=== PATIENT | female | born 1940 | race Caucasian/White ===

== ENCOUNTER 2016-06-18 10:29 | Emergency (ER) | payer OTHER ==
--- NOTE | 2016-06-18 10:44 | PROVIDER DOCUMENTATION ---
HPI-General Adult - General Chief Complaint: Abnormal Lab[s] Stated Complaint: HYPONATREMIA Time Seen by Provider: 06/18/16 10:39 Source: patient Allergies/Adverse Reactions: Patient Allergies Allergy/AdvReac Type Severity Reaction Status Date / Time No Known Allergies Allergy Verified 06/09/16 15:19 Home Medications: Home Medication List Medication Instructions Recorded Confirmed Last Taken Type Home Meds Unobtainable 06/10/16 06/10/16 Unknown History - History of Present Illness -Gen Adult Nature of Presenting Problems: pt is a 75 y/o f present to the [facility] with c/o abnormal labs. pt was sent from [facility] pt in no apparent distress. pt has a hx of dementia, COPD, HTN and is a former smoker. pt has a hoarse voice. DMW tech at bedside. Location of Pain/Injury: reports: none Pain Radiation: reports: no radiation Quality of Pain: reports: none Onset/Duration: reports: unsure Context/Activities at Onset: reports: none Modifying Factors: improves with: nothing Associated Symptoms: denies: fatigue, fever/chills, heartburn, seizure, shortness of breath Similar Symptoms Previously?: Yes Recently seen or treated by another doctor?: No Review of Systems - Adult - REVIEW OF SYSTEMS - ADULT Constitutional: reports: no symptoms reported Eyes: reports: no symptoms reported Ears, Nose, Mouth & Throat: reports: no symptoms reported Cardiovascular: reports: no symptoms reported Respiratory: reports: no symptoms reported Gastrointestinal: reports: no symptoms reported Genitourinary: reports: no symptoms reported Musculoskeletal: reports: no symptoms reported Integumentary: reports: no symptoms reported Neurological: reports: no symptoms reported Psychiatric: reports: no symptoms reported Endocrine: reports: no symptoms reported Hematologic/Lymphatic: reports: no symptoms reported Allergic/Immunologic: reports: no symptoms reported All Other Systems: Reviewed and Negative Past History - Adult - PAST MEDICAL HISTORY-ADULT Review of Records: reports: Nursing Assessment Review Major Childhood Illnesses: reports: denies history Cardiovascular: reports: HTN Respiratory: reports: COPD Musculoskeletal: reports: intervertebral disc disease Neurological: reports: Alzheimer's, dementia Psychiatric: reports: psychiatric problems Endocrine/Immune: reports: thyroid disorder, other (vit B 12 deficiency) - PRIOR SURGERIES/PROCEDURES Surgical/Procedure History: reports: hysterectomy, BTL - IMMUNIZATION STATUS Childhood Immunizations: See Nurse Assessment Flu Vaccine: See Nurse Assessment - FAMILY HISTORY Family History: reviewed, not pertinent - SOCIAL HISTORY Smoking: other (former smoker ) Substance Use: none/never Alcohol Use Frequency: never Living Situation: care facility Physical Exam-General - PHYSICAL EXAM-ADULT Initial Vital Signs Reviewed: Yes - CONSTITUTIONAL General Appearance: alert, no apparent distress - EYES Eyes: PERRL/EOMI, pink conjunctivae - HEAD, EARS, NOSE, MOUTH & THROAT HENMT: moist mucous membranes - NECK Neck: non-tender, full range of motion - RESPIRATORY Respiratory: chest non-tender, lungs clear, normal breath sounds, no pleuratic chest pain, no respiratory distress, no accessory muscle use - CARDIOVASCULAR Cardiovascular: normal peripheral pulses, regular rate, rhythm, no gallop, no JVD, no murmur - GASTROINTESTINAL (ABDOMEN) Abdominal Exam: normal bowel sounds, non tender, soft - MUSCULOSKELETAL Extremity: normal range of motion, non-tender, no pedal edema, no calf tenderness, normal capillary refill, pedal edema (mild swelling to lower extremity) - SKIN Integumentary: normal color, normal turgor, warm/dry - NEUROLOGIC Neurologic: grossly normal, no motor/sensory deficits - PSYCHIATRIC Psych/Mental Status: normal mood/affect, disoriented x 3 Progress - PLAN OF CARE/RESULTS Progress/Plan/Lab Results: Vital Signs - 24 hr 06/18/16 10:32 Temperature 97.3 F L Pulse Rate 62 Respiratory 18 Rate Blood Pressure 133/71 O2 Sat by Pulse 100 Oximetry MD spoke with DMW nurse about pt current mediations in relation to abnormal labs. hold back on pt medications. MD states euvolemic hyponatremia Departure - Departure Time of Disposition Order: 11:36 DIAGNOSIS: Hyponatremia Disposition: [facility] Certified Medical Emergency: Emergent Condition: Stable Referrals: None,PCP [Primary Care Provider] - Jacklyn Gil MD [STAFF PHYSICIAN] - Attestation - Scribe Verification/Attestation Scribe:: Alyson Washington Acting as Scribe for:: Deondre Barajas Scribe documention review:: This chart was documented by a scribe and accurately reflects the service the provider performed and the decisions made by the provider.
[2016-06-18 11:39] LABS: URINE CULTURE PL NEEDED? NO; URINE SOURCE CLEAN CATCH
[2016-06-18 11:46] LABS: BILIRUBIN URINE NEGATIVE (NEGATIVE); BLOOD URINE NEGATIVE (NEGATIVE); CLARITY CLEAR (CLEAR); COLOR YELLOW; GLUCOSE URINE NEGATIVE (NEGATIVE); LEUKOCYTES URINE TRACE (NEGATIVE); NITRITE URINE NEGATIVE (NEGATIVE); PH URINE 6.5; PROTEIN URINE NEGATIVE (NEGATIVE); SP GRAVITY URINE 1.015; UROBILINOGEN URINE NORMAL
[2016-06-18 11:47] LABS: URINE EPITHELIAL CELLS <10 /HPF (<10); URINE WBC <10 /HPF (<10)
[2016-06-18 11:51] VITALS: BP 109/54
== END 2016-06-18 12:15 ==
LOC: P.ED 10:29
DX: E87.1 Hypo-osmolality and hyponatremia (principal); R79.9 Abnormal finding of blood chemistry, unspecified; R60.0 Localized edema; R49.0 Dysphonia; J44.9 Chronic obstructive pulmonary disease, unspecified; I10 Essential (primary) hypertension; G30.9 Alzheimer's disease, unspecified; F02.80 Dementia in other diseases classified elsewhere, unspecified severity, without behavioral disturbance, psychotic disturbance, mood disturbance, and anxiety; Z87.891 Personal history of nicotine dependence
CPT/HCPCS: 81001; 99285

== ENCOUNTER 2016-11-19 10:09 | Inpatient (IN) ==
[2016-11-19] MEDS ORDERED: STERILE WATER INJ. ONE ×2 (12:23→18:36)
[2016-11-19] MEDS: GEODON IM PRN ×2 (12:28→18:52)
[2016-11-19] MEDS ORDERED: TYLENOL PO PRN (12:44)
[2016-11-19] MEDS ORDERED: ZOFRAN IV PRN (12:50)
--- NOTE | 2016-11-19 13:13 | EKG Report ---
Test Performed on : 11/19/2016 12:59:16 PM Test Reason : acute mental status change Blood Pressure : / mmHG Vent. Rate : 086 BPM Atrial Rate : 086 BPM P-R Int : 144 ms QRS Dur : 068 ms QT Int : 374 ms P-R-T Axes : 065 026 052 degrees QTc Int : 447 ms Normal sinus rhythm. Nonspecific ST abnormality Abnormal ECG When compared with ECG of 04-MAY-2016 18:56, premature atrial complexes. are no longer present Confirmed by Lon Yadav DO ([id number]) on 11/20/2016 12:36:04 PM
[2016-11-19 13:37] LABS: MANUAL DIFF NEEDED? NO
[2016-11-19 13:40] LABS: BASO% 0.4 % (0.0-0.8); EOS# 0.17 X1000 (0.0-0.7); EOS% 3.2 % (0.0-10.0); HEMATOCRIT 31.4 % (37.0-47.0); HEMOGLOBIN 10.2 g/dL (12.0-16.0); LYMPH# 0.86 X1000 (1.2-3.4); LYMPH% 16.3 % (20.5-51.1); MCH 29.3 PG (27-31); MCHC 32.5 g/dL (33-37); MCV 90.2 FL (81-99); MONO# 0.42 X1000 (0.11-0.59); MONO% 7.9 % (1.7-9.3); NEUT% 72.2 % (42.2-75.2); PLT 187 X1000 (130-400); RBC 3.48 XMIL (4.2-5.4)
[2016-11-19 14:07] LABS: ALBUMIN 3.8 g/dL (3.5-5.0); CALCIUM 9.6 mg/dL (8.8-10.2); POTASSIUM 4.3 mmol/L (3.5-5.1); TOTAL BILIRUBIN 0.26 mg/dL (0.20-1.00); TOTAL PROTEIN 6.5 g/dL (6.3-8.3)
--- NOTE | 2016-11-19 15:09 | Diag Imaging Result Doc PS360 ---
EXAM: HEAD W/O CONTRAST - 11/19/2016 HISTORY: ams TECHNIQUE: Dose reduction protocol COMPARISON: 06/09/2016 FINDINGS: There are some generalized atrophic changes similar to the previous exam. There are mild chronic microvascular ischemic changes. There is no indication of recent infarct, although acute infarcts may not be immediately visible. There are atherosclerotic calcifications noted at the base the brain. There is no evidence of hemorrhage mass effect or midline shift. IMPRESSION: Atrophic changes and mild chronic microvascular ischemic changes. No visible acute intracranial abnormality. No hemorrhage or mass effect. Electronically signed by Alexi Curiel 11/19/2016 3:07 PM
[2016-11-19] MEDS: DEPAKENE LIQUID PO SCH ×2 (15:23→17:59)
[2016-11-19] MEDS: D5 1/2 NS + KCL 10 MEQ 1,000 ML IV SCH (15:25)
[2016-11-19] MEDS: LOVENOX SUBQ SCH (15:33)
[2016-11-19] MEDS: ROCEPHIN 1 GM/NS 1 GM/50 ML IVPB IV SCH (15:41)
[2016-11-19 18:09] LABS: URINE MICRO REVIEW NEEDED? NO; URINE SOURCE CATH
[2016-11-19 18:22] LABS: BILIRUBIN URINE NEGATIVE (NEGATIVE); BLOOD URINE NEGATIVE (NEGATIVE); COLOR YELLOW; GLUCOSE URINE NEGATIVE (NEGATIVE); LEUKOCYTES URINE SMALL (NEGATIVE); NITRITE URINE NEGATIVE (NEGATIVE); PH URINE 6.5; PROTEIN URINE 30 mg/dL (NEGATIVE); SP GRAVITY URINE 1.024; TURBIDITY URINE CLEAR (CLEAR); UROBILINOGEN URINE NORMAL (NORMAL)
[2016-11-19 18:23] LABS: UR EPITHELIAL CELLS >10 /HPF (<10); URINE BACTERIA NEGATIVE /HPF; URINE CULTURE NEEDED? YES; URINE RBC <10 /HPF (<10)
--- NOTE | 2016-11-19 21:19 | HISTORY AND PHYSICAL ---
HISTORY OF PRESENT ILLNESS: Ms. Rankin, who is a 76-year-old, white female, a resident of [facility], who has hypertensive heart disease, ischemic heart disease, COPD, hypothyroidism, B12 deficiency, anemia, allergic rhinitis, history of pulmonary fibrosis and generalized muscle weakness. She has been hurting since yesterday and she had some change in mental status. She has mild dementia, however, she was communicating with people and taking a few steps since last night. She has been hallucinating, confused, and very agitated. She has not done this before. She was evaluated and has Alzheimer's type of dementia. MEDICATIONS: 1. Albuterol and Atrovent inhaler. 2. Aricept. 3. Namenda. 4. Olanzapine 5 mg at night. 5. Remeron 15 mg. 6. Depakote. 7. She also takes losartan 50 mg daily. 8. Vitamin B12 tablet daily. 9. Levothyroxine 50 mcg daily. Other details are noncontributory and cannot be obtained as the family is not here. ALLERGIES: She is not allergic to any medication. REVIEW OF SYSTEMS: Not available. PHYSICAL EXAMINATION: VITAL SIGNS AT THE LONGTERM: The vital signs at the [facility] revealed a pulse 100 per minute, blood pressure 100/60, temperature normal, respiratory rate was variable. HEENT: Head normocephalic. Pupils PERRLA. Fundus examination could not be done. NECK: Supple. JVP normal. HEENT: Examination unremarkable. There was no evidence of lymphadenopathy, thyroid enlargement, pedal edema, calf tenderness, anemia, cyanosis or clubbing. Pedal pulses well felt. BREASTS: Normal. CHEST: Normal to inspection. LUNGS: Clear to auscultation. HEART: Sounds normal. No murmur, gallop or rub noted. PMI in the normal position. ABDOMEN: Nondistended. Hernial orifices normal. No guarding, rigidity, free fluid, masses, or organomegaly. Bowel sounds normal. RECTAL: Deferred. CENTRAL NERVOUS SYSTEM: patient very agitated and confused and appears to be hallucinating. Movements of all extremities present. Deep tendon reflexes could not be done. There is no neck stiffness. Nervous system examination could not be done. CLINICAL IMPRESSION: 1. Acute mental status changes with agitation, hallucination. 2. History of dementia. 3. Chronic obstructive pulmonary disease. 4. Hypothyroidism. 5. Hypertensive heart disease. cc: Chapincito Camilo MD
[2016-11-20] MEDS ORDERED: STERILE WATER INJ. ONE ×3 (02:24→13:56)
[2016-11-20] MEDS: GEODON IM PRN ×4 (02:31→23:20)
[2016-11-20] MEDS: D5 1/2 NS + KCL 10 MEQ 1,000 ML IV SCH ×2 (03:18→13:59)
[2016-11-20 06:06] LABS: MANUAL DIFF NEEDED? NO
[2016-11-20 06:18] LABS: BASO% 0.5 % (0.0-0.8); EOS# 0.22 X1000 (0.0-0.7); HEMATOCRIT 28.7 % (37.0-47.0); HEMOGLOBIN 9.2 g/dL (12.0-16.0); LYMPH# 0.78 X1000 (1.2-3.4); LYMPH% 17.6 % (20.5-51.1); MCH 28.9 PG (27-31); MCHC 32.1 g/dL (33-37); MCV 90.3 FL (81-99); MONO# 0.33 X1000 (0.11-0.59); MONO% 7.4 % (1.7-9.3); NEUT% 69.5 % (42.2-75.2); PLT 166 X1000 (130-400); RBC 3.18 XMIL (4.2-5.4)
[2016-11-20 06:21] LABS: ALBUMIN 3.3 g/dL (3.5-5.0); CALCIUM 8.4 mg/dL (8.8-10.2); POTASSIUM 4.2 mmol/L (3.5-5.1); TOTAL BILIRUBIN 0.19 mg/dL (0.20-1.00); TOTAL PROTEIN 5.8 g/dL (6.3-8.3)
[2016-11-20] MEDS: SYNTHROID PO SCH (07:07)
--- NOTE | 2016-11-20 08:12 | Diag Imaging Result Doc PS360 ---
EXAM: CHEST-PORTABLE - 11/20/2016 HISTORY: routine TECHNIQUE: Portable chest 0555 COMPARISON: 06/09/2016 FINDINGS: Heart size is normal. There are possible mild COPD changes. There is stable biapical pleural thickening. There are no acute changes identified. IMPRESSION: Stable exam compared to prior. Electronically signed by Alexi Curiel 11/20/2016 8:10 AM
[2016-11-20] MEDS: DEPAKENE LIQUID PO SCH ×3 (09:31→17:22)
--- NOTE | 2016-11-20 12:57 | PROGRESS NOTE ---
DATE: 11/20/2016 SUBJECTIVE: The patient would not answer my questions. She has a history of dementia. Came in with altered mental status on top of that. Appears to have a UTI. OBJECTIVE: Vital signs: Blood pressure 153/87, respirations 18, pulse 85, temperature 97.6 degrees Fahrenheit, O2 saturation is 94%just on room air. HEENT: She is normocephalic. Lungs: Clear to auscultation and percussion without rhonchi, rales, or wheezes. Heart: Regular rate and rhythm without murmurs, gallops, or friction rubs. Abdomen: Soft. Active bowel sounds. No organomegaly or tenderness. Neurological: Patient is confused. Has baseline dementia and though she recognizes family members, does not carry on a conversation. Apparently became more agitated yesterday and confused, probably from her UTI. ASSESSMENT: 1. Urinary tract infection. 2. Altered mental status. 3. Underlying dementia. PLAN: Continue IV antibiotics. We will do another catheterized urine specimen tomorrow to see if it is improving. Awaiting culture report. cc: MD Chapincito Syed Jr, MD
[2016-11-20] MEDS: ROCEPHIN 1 GM/NS 1 GM/50 ML IVPB IV SCH (14:01)
[2016-11-20] MEDS: LOVENOX SUBQ SCH (17:22)
[2016-11-20] MEDS ORDERED: SODIUM CHLORIDE 0.9% 10 ML ONE (23:14)
[2016-11-21] MEDS: D5 1/2 NS + KCL 10 MEQ 1,000 ML IV SCH ×2 (02:23→13:17)
[2016-11-21] MEDS: SYNTHROID PO SCH (06:40)
[2016-11-21 08:00] LABS: URINE MICRO REVIEW NEEDED? NO; URINE SOURCE CATH
[2016-11-21 08:05] LABS: BILIRUBIN URINE NEGATIVE (NEGATIVE); BLOOD URINE NEGATIVE (NEGATIVE); COLOR YELLOW; GLUCOSE URINE NEGATIVE (NEGATIVE); LEUKOCYTES URINE TRACE (NEGATIVE); NITRITE URINE NEGATIVE (NEGATIVE); PH URINE 6.5; PROTEIN URINE NEGATIVE (NEGATIVE); SP GRAVITY URINE 1.013; TURBIDITY URINE CLEAR (CLEAR); UROBILINOGEN URINE NORMAL (NORMAL)
[2016-11-21 08:06] LABS: UR EPITHELIAL CELLS <10 /HPF (<10); URINE BACTERIA NEGATIVE /HPF; URINE CULTURE NEEDED? YES; URINE RBC <10 /HPF (<10); URINE WBC <10 /HPF (<10)
[2016-11-21] MEDS ORDERED: STERILE WATER INJ. ONE ×2 (08:43→16:31)
[2016-11-21] MEDS: GEODON IM PRN ×2 (08:49→16:30)
[2016-11-21] MEDS: DEPAKENE LIQUID PO SCH ×3 (08:49→16:28)
--- NOTE | 2016-11-21 12:22 | PROGRESS NOTE ---
DATE: 11/21/2016 SUBJECTIVE: The patient is very sleepy at this time. She has been given an injection apparently that made her a little sleepy. She was alert earlier her family member tells me. She still has been somewhat agitated and confused. She does have underlying dementia. Her urine culture came back negative but I am not sure that she got the urine culture drawn before she was given antibiotics. Her initial urinalysis showed 10-20 WBCs/HPF but is now looking clear, so I think she is responding to the antibiotics and hopefully will get better with this. OBJECTIVE: Vital Signs: Blood pressure 169/70, respirations 16, pulse 76, temperature 98 degrees. HEENT: She is normocephalic. EOMs intact. PERRLA. Throat clear. Lungs: Clear to auscultation and percussion without rhonchi, rales, or wheezes. Heart: Regular rate and rhythm without murmurs, gallops, or friction rubs. Abdomen: Soft. Active bowel sounds. No organomegaly or tenderness. Neurologic: The patient is not very responsive at this time as she is trying to sleep. ASSESSMENT: 1. Altered mental status. 2. Probable urinary tract infection. 3. Hypertension. PLAN: Continue treatment and continue antibiotics. cc: MD Chapincito Syed Jr, MD
[2016-11-21] MEDS: LOVENOX SUBQ SCH (13:18)
[2016-11-21] MEDS: ROCEPHIN 1 GM/NS 1 GM/50 ML IVPB IV SCH (13:18)
[2016-11-22] MEDS: D5 1/2 NS + KCL 10 MEQ 1,000 ML IV SCH ×2 (01:39→12:42)
[2016-11-22] MEDS: SYNTHROID PO SCH (06:43)
--- NOTE | 2016-11-22 09:29 | PROGRESS NOTE ---
DATE: 11/22/2016 Ms. Rankin is somewhat drowsy. Her lungs are clearing up. Her heart sounds are normal. She is still shaky and very confused, agitated. I suggested to the family about getting a psychiatric evaluation and transferring her to a psychiatric hospital which they are refusing. She is on Geodon p.r.n. and ceftriaxone as well as Depakote. Overall condition is unchanged. cc: Chapincito Camilo MD
[2016-11-22] MEDS: DEPAKENE LIQUID PO SCH ×3 (09:39→18:30)
[2016-11-22] MEDS: DUONEB (A & A) INH PRN (11:15)
[2016-11-22] MEDS ORDERED: STERILE WATER INJ. ONE ×2 (12:35→21:03)
[2016-11-22] MEDS: GEODON IM PRN ×2 (12:42→21:10)
[2016-11-22] MEDS: ROCEPHIN 1 GM/NS 1 GM/50 ML IVPB IV SCH (15:41)
[2016-11-22] MEDS: LOVENOX SUBQ SCH (15:41)
[2016-11-22] MEDS: HALDOL PO SCH (20:09)
[2016-11-23] MEDS: D5 1/2 NS + KCL 10 MEQ 1,000 ML IV SCH ×3 (01:15→23:54)
[2016-11-23] MEDS: SYNTHROID PO SCH (06:26)
[2016-11-23] MEDS: DEPAKENE LIQUID PO SCH ×3 (08:42→17:29)
[2016-11-23] MEDS: HALDOL PO SCH ×3 (08:43→23:54)
--- NOTE | 2016-11-23 08:53 | PROGRESS NOTE ---
DATE: 11/23/2016 SUBJECTIVE: Ms. Rankin is still very drowsy. Her lungs are clear. She has severe dementia with behavioral changes and she is a group home patient. Family is refusing to go to psych hospital, however they want a psych opinion. Will ask Dr. Adrien Levine or his staff to see her today if possible. I will have her cut down on the Geodon from 20 to 10 mg and she is on Haldol now. cc: Chapincito Camilo MD
[2016-11-23] MEDS: LOVENOX SUBQ SCH (13:24)
[2016-11-23] MEDS: ROCEPHIN 1 GM/NS 1 GM/50 ML IVPB IV SCH (13:24)
[2016-11-23] MEDS: STERILE WATER INJ. INJ PRN (19:58)
[2016-11-23] MEDS: GEODON IM PRN (19:58)
[2016-11-23] MEDS: DUONEB (A & A) INH PRN (22:05)
[2016-11-24] MEDS: SYNTHROID PO SCH (06:18)
[2016-11-24] MEDS: HALDOL PO SCH ×2 (08:33→21:36)
[2016-11-24] MEDS: DEPAKENE LIQUID PO SCH (08:33)
--- NOTE | 2016-11-24 10:03 | PROGRESS NOTE ---
DATE: 11/24/2016 Ms. Rankin is still drowsy. We are going to stop the Depakote on her. She is getting Haldol and she got some Geodon down which made her very drowsy. She is . She does not swallow properly and does not he eat right. She cannot eat because she is drowsy. When she comes up from drowsiness we will start her on a soft diet. Her BUN and creatinine are coming down significantly. Will repeat the Chem 7 again in the morning. Cultures have been negative. cc: Chapincito Camilo MD
[2016-11-24] MEDS: D5 1/2 NS + KCL 10 MEQ 1,000 ML IV SCH (14:47)
[2016-11-24] MEDS: LOVENOX SUBQ SCH (14:47)
[2016-11-24] MEDS: ROCEPHIN 1 GM/NS 1 GM/50 ML IVPB IV SCH (14:47)
[2016-11-24] MEDS: GEODON IM PRN (19:50)
[2016-11-24] MEDS: STERILE WATER INJ. INJ PRN (19:50)
[2016-11-25] MEDS: D5 1/2 NS + KCL 10 MEQ 1,000 ML IV SCH ×3 (02:33→23:09)
[2016-11-25] MEDS: SYNTHROID PO SCH (06:10)
[2016-11-25 07:43] LABS: AGAP 10; BUN 8 mg/dL (8-22); CALCIUM 8.5 mg/dL (8.8-10.2); CHLORIDE 103 mmol/L (98-107); COSMO 278; POTASSIUM 4.1 mmol/L (3.5-5.1); SODIUM 140 mmol/L (136-145); TCO2 27 mmol/L (25-35)
[2016-11-25] MEDS: HALDOL PO SCH ×2 (09:15→23:09)
--- NOTE | 2016-11-25 09:49 | PROGRESS NOTE ---
DATE: 11/25/2016 SUBJECTIVE: Ms. Rankin is still somewhat agitated. She has significant dementia and has been shaking. We have taken her off the Depakote. We will discontinue the Geodon today. BUN and creatinine are normal. Electrolytes are stable. We are trying to feed her through the The family has been informed about tube feeding which they will then order. We may discharge her tomorrow. cc: Chapincito Camilo MD
[2016-11-25] MEDS: ROCEPHIN 1 GM/NS 1 GM/50 ML IVPB IV SCH (14:43)
[2016-11-25] MEDS: LOVENOX SUBQ SCH (14:43)
[2016-11-26] MEDS: SYNTHROID PO SCH (06:28)
[2016-11-26 07:59] VITALS: BP 148/82
--- NOTE | 2016-11-26 09:27 | PROGRESS NOTE ---
DATE: 11/26/2016 SUBJECTIVE: Ms. Rankin is in about the same general condition. She is slightly more alert. However, she is still drowsy. ASSESSMENT AND PLAN: We will continued the Haldol at the present time. Cut it down to 1 mg twice a day and discharge her to [facility]. cc: Chapincito Camilo MD
--- NOTE | 2016-11-26 10:26 | DISCHARGE SUMMARY ---
ADMISSION DATE: 11/19/2016 DISCHARGE DATE: 11/26/2016 HISTORY: Ms. Rankin, who is a 76-year-old white female, was admitted with acute mental status change. She did have some behavioral changes. A CT scan of the brain revealed cortical atrophy. No process noted. EKG revealed normal sinus rhythm. Nonspecific ST abnormalities were noted. LABORATORY DATA: Lab data initially revealed hemoglobin was 9.2, hematocrit was 28.7, white count 4.44. Initial electrolytes were normal. BUN was 44, creatinine was 1.5, and it came down to BUN of 8 and creatinine of 0.9. B12 level was 1663. Urinalysis was negative. COURSE IN THE HOSPITAL: She was given IV fluids. IV Geodon was given. IV antibiotics were started and continued thinking that she had some UTI or possible aspiration-related problems. Chest x-ray was stable exam with changes of COPD. She probably had some bronchitis as she had initially some wheezing. We continue the antibiotics. She became very drowsy. Restraints were put on her. She was trying to pull on to things, especially the IV lines. She has improved some, but she is still very drowsy. Family does not want any tube feeding at the current time. We will discharge her back to [facility]. FINAL DIAGNOSES: 1. Dementia with behavioral changes. 2. Mild bronchitis. 3. Hypothyroidism. 4. Chronic obstructive pulmonary disease. She will be seen by me at the [facility]. cc: Chapincito Camilo MD
[2016-11-26] MEDS: D5 1/2 NS + KCL 10 MEQ 1,000 ML IV SCH (10:48)
[2016-11-26] MEDS ORDERED: HALDOL PO SCH (21:00)
== END 2016-11-26 11:12 ==
LOC: DIRADM 10:09 → 3N 10:33
PROVIDERS: ADMIT Internal Medicine; ATTEND Internal Medicine

== ENCOUNTER 2016-12-28 03:23 | Inpatient (IN) ==
[2016-12-28 04:12] LABS: ALLEN TEST YES; BE -1.2 mmoll (-3.0-3.0); BLOOD TYPE ARTERIAL; DRAW SITE R BRACHIAL; METHB 0.9 % (0.0-1.5); O2(CT) 13.4 mL/dL (15.0-23.0); PCO2(98.6) 31 mmHg (35-45); PO2(98.6) 50 mmHg (60-100); SAMPLE BLOOD; pH(98.6) 7.46 (7.35-7.45)
[2016-12-28 04:13] LABS: MODALITY CANNULA
--- NOTE | 2016-12-28 04:26 | PROVIDER DOCUMENTATION ---
HPI-General Adult - General Chief Complaint: Shortness of Breath Stated Complaint: FEVER/RESP. DISTRESS Time Seen by Provider: 12/28/16 04:15 Source: family Allergies/Adverse Reactions: Patient Allergies Allergy/AdvReac Type Severity Reaction Status Date / Time No Known Allergies Allergy Verified 12/28/16 04:38 Home Medications: Home Medication List Medication Instructions Recorded Confirmed Last Taken Type ATORVAstatin [Lipitor] 40 mg PO QHS 30 Days 06/21/16 12/28/16 12/27/16 Rx Albuterol 2.5MG/Ipratrop 0.5MG 3 ml INH RTBID 30 Days 06/21/16 12/28/16 Rx [Duoneb (A & A)] Cyanocobalamin [Vitamin B-12] 1,000 microgm PO DAILY 30 Days 06/21/16 12/28/16 12/27/16 Rx Donepezil [Aricept] 10 mg PO HS 30 Days 06/21/16 12/28/16 12/27/16 Rx Fluticasone/Salmet 250/50 INH 1 puff INH RTBID 30 Days 06/21/16 12/28/16 Rx [Advair 250/50 Diskus] Losartan [Cozaar] 50 mg PO DAILY 30 Days 06/21/16 12/28/16 12/27/16 Rx Memantine [Namenda] 10 mg PO BID 30 Days 06/21/16 12/28/16 12/27/16 Rx Acetaminophen [Tylenol] 650 mg PO Q6H PRN PRN #0 tablet 11/26/16 12/28/16 Rx Albuterol 2.5MG/Ipratrop 0.5MG 3 ml INH Q4-6H PRN PRN #0 neb 11/26/16 12/28/16 12/27/16 Rx [Duoneb (A & A)] Haloperidol [Haldol] 0.5 mg PO BID tablet 11/26/16 12/28/16 12/27/16 Rx Levothyroxine [Synthroid] 50 microgm PO DAILY@0700 tablet 11/26/16 12/28/1603/04 Rx - History of Present Illness -Gen Adult Nature of Presenting Problems: 76 YEAR OLD WITH A COMPLAINT OF DYSPNEA. HAS A HISTORY OF LATE STAGE ALZHEIMERS. COMPLAINS OF FEVER AND TACHYCARDIA AT THE [facility]. NO COMPLAINT OF CHEST PAIN, ABDOMINAL PAIN, NAUSEA, VOMITING OR DIARRHEA. Location of Pain/Injury: reports: none Pain Radiation: reports: no radiation Quality of Pain: reports: none Onset/Duration: reports: 24 hours ago Timing: reports: still present Context/Activities at Onset: reports: none Modifying Factors: improves with: nothing Associated Symptoms: reports: denies symptoms Similar Symptoms Previously?: No Recently seen or treated by another doctor?: No - Diabetes Related Context Context: denies: low blood sugar - Sickle Cell Pain Related Context Sickle Cell Pain Location: reports: none Review of Systems - Adult - REVIEW OF SYSTEMS - ADULT Constitutional: reports: see HPI Eyes: reports: no symptoms reported Ears, Nose, Mouth & Throat: reports: no symptoms reported Cardiovascular: reports: palpitations Respiratory: reports: no symptoms reported Genitourinary: reports: no symptoms reported Musculoskeletal: reports: no symptoms reported Integumentary: reports: no symptoms reported Neurological: reports: no symptoms reported Psychiatric: reports: no symptoms reported Endocrine: reports: no symptoms reported Hematologic/Lymphatic: reports: no symptoms reported Allergic/Immunologic: reports: no symptoms reported All Other Systems: Reviewed and Negative Past History - Adult - PAST MEDICAL HISTORY-ADULT Review of Records: reports: Old Records Reviewed, Nursing Assessment Review, Medications Reviewed, Social history reviewed & non-contributory. Major Childhood Illnesses: reports: denies history Cardiovascular: reports: HTN Respiratory: reports: COPD Musculoskeletal: reports: intervertebral disc disease Neurological: reports: Alzheimer's, dementia Endocrine/Immune: reports: thyroid disorder, other (vit B 12 deficiency) - PRIOR SURGERIES/PROCEDURES Surgical/Procedure History: reports: hysterectomy, BTL - IMMUNIZATION STATUS Childhood Immunizations: See Nurse Assessment Flu Vaccine: See Nurse Assessment - FAMILY HISTORY Family History: reviewed, not pertinent Physical Exam-General - CONSTITUTIONAL General Appearance: no apparent distress - EYES Eyes: PERRL/EOMI, pink conjunctivae - HEAD, EARS, NOSE, MOUTH & THROAT HENMT: normocephalic/atraumatic, moist mucous membranes - NECK Neck: non-tender, full range of motion - RESPIRATORY Respiratory: chest non-tender, lungs clear, normal breath sounds - CARDIOVASCULAR Cardiovascular: normal peripheral pulses, regular rate, rhythm - GASTROINTESTINAL (ABDOMEN) Abdominal Exam: normal bowel sounds, non tender, soft - LYMPHATIC Lymphatic: no adenopathy, axilla node tender - MUSCULOSKELETAL Back Exam: normal inspection, no CVA tenderness, no vertebral tenderness Extremity: normal range of motion, non-tender - SKIN Integumentary: warm/dry - NEUROLOGIC Neurologic: lead driver II-XII nml as tested - PSYCHIATRIC Psych/Mental Status: disoriented x 3 Progress - PLAN OF CARE/RESULTS Progress/Plan/Lab Results: Laboratory Results - last 24 hr 12/28/16 04:00 Specimen Type ARTERIAL Sample Site R BRACHIAL pH 7.46 H pCO2 31 L pO2 50 L HCO3 23.8 Base Excess -1.2 Oxyhemoglobin 86.9 L* ABG O2 Sat (Calculated) 13.4 L ABG O2 Saturation 90.0 L ABG Carboxyhemoglobin 2.50 ABG Methemoglobin 0.9 Linden Test YES A-a O2 Difference 168.0 Total Hemoglobin 11.0 L Lactate 1.80 Liter Flow 4.0 Blood Gas Modality CANNULA FiO2 % 36.0 Orders Category Date Time Status Cardiac Monitoring DIRECTED Care 12/28/16 03:59 Active IV Insertion ORDERED Care 12/28/16 03:59 Active CHEST-1 VIEW [RAD] Stat Exams 12/28/16 03:59 Ordered ABG [RESP] Routine Lab 12/28/16 04:00 Completed BLOOD CULTURE [BLDCUL] Stat Lab 12/28/16 03:59 Uncollected CBC WITH DIFF [HEME] Stat Lab 12/28/16 03:59 Uncollected CK PROFILE [SP CHEM] Stat Lab 12/28/16 03:59 Uncollected COMPREHENSIVE METABOLIC PANEL [CHEM] Stat Lab 12/28/16 03:59 Uncollected LACTATE, PLASMA [CHEM] Stat Lab 12/28/16 03:59 Uncollected MAGNESIUM [CHEM] Stat Lab 12/28/16 04:00 Uncollected PROTIME WITH INR [COAG] Stat Lab 12/28/16 03:59 Uncollected PTT [COAG] Stat Lab 12/28/16 03:59 Uncollected TROPONIN T Stat Lab 12/28/16 03:59 Uncollected URINALYSIS W/POSS RFLX CULT-1 [URINALYSIS] Routine Lab 12/28/16 03:59 Uncollected Oxygen Device Stat Oth 12/28/16 03:59 Active Result Diagrams: 12/28/16 03:50 09/12/17 03:50 Departure - Departure Date of Disposition Decision: 12/28/16 Time of Disposition Decision: 05:03 DIAGNOSIS: UTI (urinary tract infection), Volume depletion Disposition: ADMITTED INPATIENT Certified Medical Emergency: Emergent Condition: Stable - Critical Care Note This patient required my direct & personal management of CC.: No Attestation - Physician/ FANI Attestation The physician spent face to face time with patient:: Yes Advanced Practice Provider documentation review:: Supervising physician onsite and consulted in the evaluation and care of this patient. The physician did have a face to face encounter with the patient.
[2016-12-28 04:43] LABS: URINE MICRO REVIEW NEEDED? NO; URINE SOURCE CATH
[2016-12-28 04:43] LABS: MANUAL DIFF NEEDED? NO
[2016-12-28 04:46] LABS: BASO% 0.2 % (0.0-0.8); EOS# 0.07 X1000 (0.0-0.7); EOS% 0.8 % (0.0-10.0); HEMATOCRIT 39.7 % (37.0-47.0); HEMOGLOBIN 12.3 g/dL (12.0-16.0); IMM GRAN# 0.04 X1000 (0.0-0.04); IMM GRAN% 0.5 % (0.0-0.5); LYMPH% 19.2 % (20.5-51.1); MCH 28.1 PG (27-31); MCV 90.6 FL (81-99); MONO# 0.36 X1000 (0.11-0.59); MONO% 4.3 % (1.7-9.3); MPV 13.3 FL (7.4-10.4); PLT 177 X1000 (130-400); RBC 4.38 XMIL (4.2-5.4)
[2016-12-28 04:47] LABS: BILIRUBIN URINE NEGATIVE (NEGATIVE); BLOOD URINE TRACE (NEGATIVE); COLOR YELLOW; GLUCOSE URINE NEGATIVE (NEGATIVE); LEUKOCYTES URINE SMALL (NEGATIVE); NITRITE URINE NEGATIVE (NEGATIVE); PH URINE 5.5; PROTEIN URINE 30 mg/dL (NEGATIVE); SP GRAVITY URINE 1.028; TURBIDITY URINE CLEAR (CLEAR); UROBILINOGEN URINE NORMAL (NORMAL)
[2016-12-28 04:48] LABS: UR EPITHELIAL CELLS >10 /HPF (<10); URINE BACTERIA 1+ /HPF; URINE CULTURE NEEDED? YES; URINE RBC <10 /HPF (<10)
[2016-12-28 04:55] LABS: INR 0.97; PROTIME 10.2 Seconds (9.2-11.7); PTT 25.6 Seconds (22.0-36.0)
[2016-12-28 04:59] LABS: ALBUMIN 3.5 g/dL (3.5-5.0); CALCIUM 9.8 mg/dL (8.8-10.2); MAGNESIUM 2.7 mg/dL (1.5-2.7); POTASSIUM 4.5 mmol/L (3.5-5.1); TOTAL BILIRUBIN 0.49 mg/dL (0.20-1.00); TOTAL PROTEIN 7.9 g/dL (6.3-8.3)
[2016-12-28] MEDS ORDERED: ROCEPHIN 1 GM in NS 50 ML IV ONE (05:01)
[2016-12-28] MEDS ORDERED: NS 1,000 ML IV ONE (05:01)
[2016-12-28 05:22] LABS: CK INDEX 1.3 (0.0-2.5); CK-MB 6.45 ng/mL (0.0-5.0)
--- NOTE | 2016-12-28 05:30 | EKG Report ---
Test Performed on : 12/28/2016 04:25:24 AM Test Reason : No Order in [facility] Blood Pressure : / mmHG Vent. Rate : 125 BPM Atrial Rate : 125 BPM P-R Int : 122 ms QRS Dur : 062 ms QT Int : 334 ms P-R-T Axes : 072 031 042 degrees QTc Int : 482 ms Sinus tachycardia. with premature supraventricular complexes. and with occasional premature ventricu lar complexes. Nonspecific ST and T wave abnormality Abnormal ECG When compared with ECG of 28-DEC-2016 04:05, (Unconfirmed) QRS axis shifted left Nonspecific T wave abnormality now evident in Anterior leads T wave inversion less evident in Lateral leads Unconfirmed Result
[2016-12-28 07:31] LABS: ALBUMIN 3.7 g/dL (3.5-5.0); CALCIUM 9.5 mg/dL (8.8-10.2); POTASSIUM 4.6 mmol/L (3.5-5.1); TOTAL BILIRUBIN 0.46 mg/dL (0.20-1.00); TOTAL PROTEIN 7.2 g/dL (6.3-8.3)
--- NOTE | 2016-12-28 07:34 | Diag Imaging Result Doc PS360 ---
EXAM: CHEST-1 VIEW HISTORY: SOB TECHNIQUE: AP portable at 0415 COMMENT: There is pleural thickening in the apices particularly on the right. The lungs are better expanded than on 11/20/2016. Otherwise considering differences in technique there is been no significant change. IMPRESSION: Granulomatous changes. No evidence of acute disease. Electronically signed by Jeff Akbar 12/28/2016 7:32 AM
[2016-12-28] MEDS ORDERED: TYLENOL PR ONE (08:07)
[2016-12-28] MEDS ORDERED: D5 1/2 NS 1,000 ML IV ONE (08:07)
[2016-12-28] MEDS: ZOSYN 3.375 GM in NS 50 ML IV SCH ×3 (09:00→21:00)
[2016-12-28] MEDS ORDERED: TYLENOL PR PRN (17:31)
--- NOTE | 2016-12-28 18:41 | HISTORY AND PHYSICAL ---
HISTORY OF PRESENT ILLNESS: Ms. Rankin is a 76-year-old white female, a resident of [facility], known case of severe dementia who was admitted because of intermittent high fever. Ms. Rankin is also a known case of COPD and she was admitted here about a month ago and thereafter sent to group home and she has not done well. She has not been eating at all at the group home. PAST SURGICAL HISTORY: Hysterectomy and cholecystectomy. History of recurrent UTIs in the past. Ms. Rankin was running a very high temperature this morning. REVIEW OF SYSTEMS: Unavailable. SOCIAL HISTORY: She is a nonsmoker. Does not drink. MEDICATIONS: She hardly could take anything by mouth. Her oral medications at the group home included atorvastatin 40 mg, 500 mcg of vitamin B12 tablet, donepezil and Advair Diskus. PHYSICAL EXAMINATION: VITAL SIGNS: Reveal temperature 103 degrees in the emergency room. Pulse 117. Respiratory rate 30 per minute, blood pressure 125/47. HEENT: Head normocephalic. Pupils PERRLA. Fundus examination could not be done. Neck supple. JVP normal. ENT examination unremarkable. There was no evidence of lymphadenopathy, thyroid enlargement, pedal edema, calf tenderness, anemia, cyanosis or clubbing. Pedal pulses well felt. BREASTS: Normal. CHEST: Normal inspection. LUNGS: Reveal occasional basal rales. PMI in the normal position. HEART: Sounds normal. No murmur, gallop or rub noted. ABDOMEN: Nondistended. Hernial orifices normal. No guarding, rigidity, free fluid, masses, or organomegaly. Bowel sounds normal. RECTAL: Deferred. [employer]/HIGHER FUNCTIONS: Patient is obtunded and tremulous. Cranial nerves grossly normal. Motor and sensory system examination reveals generalized hypotonia and some tremors in both upper extremities. The deep tendon reflexes are sluggish. Plantars downgoing. Skull and spine examination normal for age. No cerebellar signs or signs of meningeal irritation. LOCOMOTOR: Unremarkable. SKIN: Revealed presence of dehydration. IMPRESSION: Dehydration. High fever. Possibly acute urinary tract infection. Patient has severe dementia, chronic obstructive pulmonary disease. We will get a blood cultures and start the appropriate antibiotics. Overall prognosis is poor. She is Do Not Resuscitate. cc: Chapincito Camilo MD
[2016-12-28] MEDS ORDERED: NS 50 ML ONE (20:13)
[2016-12-29] MEDS: ZOSYN 3.375 GM in NS 50 ML IV SCH ×4 (02:34→21:28)
[2016-12-29] MEDS ORDERED: VANCOMYCIN IV PER PHARMACY MISC SCH (08:45)
--- NOTE | 2016-12-29 09:47 | PROGRESS NOTE ---
DATE: 12/29/2016 SUBJECTIVE: Ms. Rankin is still confused, disoriented. Oral intake is slowly improving. Urine culture grew gram positive cocci. We have added vancomycin on top of Zosyn. We will continue the current management. She is on pureed diet. cc: Chapincito Camilo MD
[2016-12-29] MEDS: VANCOMYCIN 1 GM/NS 1 GM/250 ML IVPB IV SCH (11:11)
[2016-12-29] MEDS ORDERED: LOPRESSOR PO ONE (16:26)
--- NOTE | 2016-12-29 16:55 | EKG Report ---
Test Performed on : 12/29/2016 4:31:41 PM Test Reason : atrial tachycardia report from telemetry Blood Pressure : / mmHG Vent. Rate : 094 BPM Atrial Rate : 094 BPM P-R Int : 122 ms QRS Dur : 068 ms QT Int : 364 ms P-R-T Axes : 078 033 041 degrees QTc Int : 455 ms Sinus rhythm. with premature supraventricular complexes. Otherwise normal ECG When compared with ECG of 28-DEC-2016 04:25, (Unconfirmed) premature ventricular complexes. are no longer present Confirmed by Tomas Butcher MD ([id number]) on 01/01/2017 4:10:41 PM
[2016-12-29] MEDS: TYLENOL PR PRN (18:48)
[2016-12-29] MEDS: LOPRESSOR PO SCH (21:30)
[2016-12-30] MEDS: ZOSYN 3.375 GM in NS 50 ML IV SCH ×4 (02:06→21:04)
--- NOTE | 2016-12-30 06:11 | EKG Report ---
Test Performed on : 12/30/2016 05:28:29 AM Test Reason : atrial tachycardia report from telemetry Blood Pressure : / mmHG Vent. Rate : 096 BPM Atrial Rate : 049 BPM P-R Int : 000 ms QRS Dur : 064 ms QT Int : 298 ms P-R-T Axes : 000 053 083 degrees QTc Int : 376 ms Normal sinus rhythm. with premature supraventricular complexes. Nonspecific ST and T wave abnormality Abnormal ECG When compared with ECG of 29-DEC-2016 16:31, (Unconfirmed) Nonspecific T wave abnormality, worse in Anterior leads QT has shortened Confirmed by Tomas Butcher MD ([id number]) on 01/02/2017 12:21:22 PM
--- NOTE | 2016-12-30 09:41 | PROGRESS NOTE ---
DATE: 12/30/2016 Ms. Rankin is on the Zosyn as well as IV vancomycin. Her vital signs are stable. Lungs are clear. She is tolerating the pureed diet well. She is afebrile, running about 98.9 degree temperature. The urine culture grew gram positive cocci. Blood cultures so far have been negative. We do not have the identification yet. We will continue the current management. cc: Chapincito Camilo MD
[2016-12-30] MEDS: LOPRESSOR PO SCH ×2 (10:46→21:05)
[2016-12-31] MEDS: ZOSYN 3.375 GM in NS 50 ML IV SCH ×4 (01:19→21:41)
[2016-12-31] MEDS: LOPRESSOR PO SCH ×2 (09:12→21:42)
[2016-12-31] MEDS ORDERED: CALMOSEPTINE OINTMENT TOP PRN (15:03)
--- NOTE | 2016-12-31 15:34 | PROGRESS NOTE ---
DATE: 12/31/2016 SUBJECTIVE: Ms. Rankin is doing fairly well. Her vital signs are stable. She is running a low- grade temperature at times. Her urine culture grew E. faecalis sensitive to vancomycin as well as penicillin. She is on IV Zosyn as well as vancomycin. Her blood culture grew OM negative Staphylococcus. She is on vancomycin. We are going to continue the current management. She is on soft diet. She is on pureed diet. Overall condition is unchanged. cc: Chaipncito Camilo MD
[2017-01-01] MEDS ORDERED: NS 50 ML ONE (03:54)
[2017-01-01] MEDS: ZOSYN 3.375 GM in NS 50 ML IV SCH ×4 (03:57→21:48)
[2017-01-01] MEDS: LOPRESSOR PO SCH ×2 (09:35→21:48)
[2017-01-01] MEDS ORDERED: D5 1/2 NS 500 ML IV SCH (10:21)
[2017-01-01] MEDS: VANCOMYCIN 1 GM/NS 1 GM/250 ML IVPB IV SCH (11:43)
[2017-01-01] MEDS: D5 1/2 NS 1,000 ML IV SCH ×2 (11:43→21:48)
--- NOTE | 2017-01-01 13:56 | PROGRESS NOTE ---
DATE: 01/01/2017 SUBJECTIVE: Covering for Dr. Camilo, level 3 documentation. A 76-year-old white female was admitted to the hospital on 12/28/2016 for altered mental status, dehydration, urinary tract infection, with underlying severe dementia, COPD, from [facility]. REVIEW OF SYSTEMS: Not able to obtain; patient is sleeping. Family was there at bedside. PAST MEDICAL HISTORY: Reviewed. PAST SURGICAL HISTORY: Reviewed. MEDICINES: Reviewed. EXAMINATION: Vital Signs: Fever 100.4, tachycardic, blood pressure is stable at 108 x 62, 87 pounds. Input and output are negative 950. HEENT Exam: Sleeping. Unable to open the eyes. Neck: Supple. Chest: Clear to auscultation. Heart: Sounds are regular. Abdomen: Belly is soft, scaphoid. Lower midline abdominal scar present. The patient has been in diapers. Extremities: No peripheral edema, cyanosis. Neurological: No obvious neurological deficits. INVESTIGATIONS: Blood cultures are coagulase-negative Staph. Urine cultures grew group-B Enterococcus faecalis sensitive to penicillin. LABS: Initial labs reported on 12/28: CBC is normal. ABG was hypoxic. SMA 7 on 12/28: Sodium 154, potassium 4.6, BUN 55, creatinine 1.9 increasing to 2.1. LFTs were normal. Chest x-ray shows COPD changes. ASSESSMENT AND PLAN: 1. Severe dementia, stable. 2. Urinary tract infection due to group B Enterococcus sensitive to penicillin, currently on intravenous Zosyn and vancomycin. 3. Coagulase-negative Staphylococcus for blood cultures, most likely a contaminant. 4. Hypernatremic dehydration azotemia. Stop the intravenous fluids. We will start D 5 half- normal saline 50 an hour. 5. Chronic obstructive pulmonary disease, stable. 6. Reconcile home medicines, which include cyanocobalamin, Aricept. 7. Hypothyroid on Synthroid and Namenda. 8. Living Will/do not resuscitate. LEVEL OF DOCUMENTATION: 35 minutes. cc: MD Chapincito Roa MD
[2017-01-01] MEDS: ARICEPT PO SCH (21:48)
[2017-01-01] MEDS: NAMENDA PO SCH (21:48)
[2017-01-02] MEDS: ZOSYN 3.375 GM in NS 50 ML IV SCH ×4 (03:30→23:33)
[2017-01-02] MEDS: SYNTHROID PO SCH (05:45)
[2017-01-02 07:18] LABS: MANUAL DIFF NEEDED? NO
[2017-01-02 07:23] LABS: BASO% 0.2 % (0.0-0.8); EOS# 0.07 X1000 (0.0-0.7); EOS% 1.3 % (0.0-10.0); HEMATOCRIT 31.2 % (37.0-47.0); HEMOGLOBIN 9.3 g/dL (12.0-16.0); IMM GRAN# 0.03 X1000 (0.0-0.04); IMM GRAN% 0.6 % (0.0-0.5); LYMPH# 1.45 X1000 (1.2-3.4); LYMPH% 26.7 % (20.5-51.1); MCH 27.8 PG (27-31); MCHC 29.8 g/dL (33-37); MCV 93.1 FL (81-99); MONO# 0.17 X1000 (0.11-0.59); MONO% 3.1 % (1.7-9.3); MPV 12.6 FL (7.4-10.4); NEUT% 68.1 % (42.2-75.2); PLT 229 X1000 (130-400); RBC 3.35 XMIL (4.2-5.4)
[2017-01-02 08:13] LABS: POTASSIUM 3.6 mmol/L (3.5-5.1)
[2017-01-02] MEDS: LOPRESSOR PO SCH ×2 (09:28→23:34)
[2017-01-02] MEDS: NAMENDA PO SCH ×2 (09:28→23:34)
[2017-01-02] MEDS: VITAMIN B-12 PO SCH (09:28)
[2017-01-02] MEDS: TYLENOL PR PRN (09:29)
[2017-01-02] MEDS: D5 1/2 NS 1,000 ML IV SCH ×2 (11:00→23:49)
--- NOTE | 2017-01-02 15:26 | PROGRESS NOTE ---
DATE: 01/02/2017 SUBJECTIVE: A 76-year-old white female, not eating well. Closing the eyes and eating well with some assistance by the family members. IV fluids were stopped. Not drinking enough fluids. REVIEW OF SYSTEMS: None reported. PHYSICAL EXAMINATION: Vital signs: She is afebrile, tachycardic, blood pressure 110/60. I's and O's seem to be positive 1.2 L. HEENT: Not able to open the eyes. Chest: Bilateral air entry. Heart: Sounds are regular. Abdomen: Belly is soft, nontender. Good bowel sounds. extremities: No peripheral edema or cyanosis. neurologic: No obvious neurological deficits. INVESTIGATIONS: CBC: White cell count 5.4, hematocrit 31, platelets 229,000. SMA 7: Sodium 167, potassium 3.6, chloride 135, BUN 45, creatinine 1.7. Urine cultures positive for group D enterococci. ASSESSMENT AND PLAN: 1. Altered mental status, due to metabolic encephalopathy, urinary tract infection. The patient is on IV Zosyn. 2. Staphylococcus epidermidis contaminant, IV vancomycin. 3. Dehydration, hyponatremic. Well hydration, along with increased D5 half-normal saline at 80 an hour. 4. Living will, Do Not Resuscitate. LEVEL OF DOCUMENTATION: 25 minutes. Discussed with the patient's family at bedside, and repeat the SMA 7 in the morning. cc: MD Chapincito Roa MD
[2017-01-02] MEDS: ARICEPT PO SCH (23:34)
[2017-01-03] MEDS: ZOSYN 3.375 GM in NS 50 ML IV SCH ×4 (03:13→20:46)
[2017-01-03] MEDS: SYNTHROID PO SCH (06:51)
[2017-01-03 07:40] LABS: CALCIUM 8.4 mg/dL (8.8-10.2); POTASSIUM 3.6 mmol/L (3.5-5.1)
[2017-01-03] MEDS: LOPRESSOR PO SCH ×2 (08:59→20:46)
[2017-01-03] MEDS: NAMENDA PO SCH ×2 (08:59→20:46)
[2017-01-03] MEDS: VITAMIN B-12 PO SCH (08:59)
--- NOTE | 2017-01-03 09:55 | PROGRESS NOTE ---
DATE: 01/03/2017 Ms. Rankin is recovering from her urinary tract infection. She is on vancomycin and Zosyn. Overall condition is unchanged. She gets alert at times, and eats well. She does not choke on her food. Overall condition is otherwise stable. Her sodium was over 160 indicating dehydration. The fluid has been changed by Dr. Joy to D5W and it is improving. cc: Chapincito Camilo MD
[2017-01-03] MEDS ORDERED: VANCOMYCIN 1 GM/NS 1 GM/250 ML IVPB IV SCH (11:00)
[2017-01-03] MEDS: D5 1/2 NS 1,000 ML IV SCH (11:16)
[2017-01-03] MEDS: TYLENOL PR PRN (20:46)
[2017-01-03] MEDS: ARICEPT PO SCH (20:46)
[2017-01-04] MEDS: D5 1/2 NS 1,000 ML IV SCH ×2 (01:57→15:01)
[2017-01-04] MEDS: ZOSYN 3.375 GM in NS 50 ML IV SCH ×4 (02:56→21:57)
[2017-01-04 07:32] LABS: CALCIUM 7.9 mg/dL (8.8-10.2); POTASSIUM 3.6 mmol/L (3.5-5.1)
[2017-01-04] MEDS: VITAMIN B-12 PO SCH (09:11)
[2017-01-04] MEDS: NAMENDA PO SCH ×2 (09:11→21:59)
[2017-01-04] MEDS: LOPRESSOR PO SCH ×2 (09:12→21:59)
[2017-01-04] MEDS: SYNTHROID PO SCH (09:12)
--- NOTE | 2017-01-04 09:41 | PROGRESS NOTE ---
DATE: 01/04/2017 Ms. Rankin is somewhat drowsier this morning. However, the electrolyte status has improved significantly. Her sodium, which was 167, has come down to 157 this morning. BUN is 21 from 31 and the creatinine is 1.1. She is getting IV antibiotics for her urinary tract infection. We will continue with the current management. cc: Chapincito Camilo MD
[2017-01-04] MEDS: TYLENOL PR PRN (11:32)
[2017-01-04] MEDS ORDERED: VANCOMYCIN 1 GM/NS 1 GM/250 ML IVPB IV SCH (13:00)
[2017-01-04] MEDS: ARICEPT PO SCH (21:59)
[2017-01-05] MEDS: ZOSYN 3.375 GM in NS 50 ML IV SCH ×2 (03:15→09:40)
[2017-01-05] MEDS: D5 1/2 NS 1,000 ML IV SCH (05:06)
[2017-01-05] MEDS: SYNTHROID PO SCH (07:00)
--- NOTE | 2017-01-05 09:24 | PROGRESS NOTE ---
DATE: 01/05/2017 Ms. Rankin is about the same general condition except that she is trying to respond to the questions. Sometimes she is confused. She keeps her eyes closed. Dehydration is better. Sodium is 157 now. [facility]. cc: Chapincito Camilo MD
[2017-01-05] MEDS: LOPRESSOR PO SCH (09:41)
[2017-01-05] MEDS: VITAMIN B-12 PO SCH (09:41)
[2017-01-05] MEDS: NAMENDA PO SCH (09:41)
--- NOTE | 2017-01-05 11:25 | DISCHARGE SUMMARY ---
ADMISSION DATE: 12/28/2016 DISCHARGE DATE: 01/05/2017 HISTORY OF PRESENT ILLNESS: Ms. Rankin is a 76-year-old, white female, with a known case of dementia, hypothyroidism and COPD was admitted with high fever. LABORATORY DATA/X-RAY DATA: Laboratory data In the hospital: Chest x-ray was unremarkable. EKG was unremarkable. Initial white count was 8.32, hemoglobin was 12.3 and repeat hemoglobin was 9.3. INR was 0.97. Blood gases revealed hypoxia, PO2 was 50, oxyhemoglobin was 86.9. Her sodium went up to 167, however it came down to 157; when she came in it was 154. BUN was 55, creatinine 1.9; it is down to 21 and 1.1 respectively. Liver enzymes were normal, except for slight elevation in AST. Urinalysis revealed 10 to 20 WBCs and 1+ bacteria. MICROBIOLOGY: Urine culture grew Enterococcus faecalis sensitive to vancomycin and penicillin. Blood culture was positive for coagulase-negative staphylococcus. She was placed on Zosyn, as well as vancomycin which covered her infections well, and she is doing better. We will discharge her today. FINAL DIAGNOSES: 1. Sepsis. 2. Urinary tract infection. 3. Chronic obstructive pulmonary disease. 4. Hypothyroidism. 5. Dementia. 6. Dehydration. PLAN: She will be discharged to [facility] today; I will follow her there. cc: Chapincito Camilo MD
[2017-01-05 14:26] VITALS: BP 127/52
== END 2017-01-05 15:28 ==
LOC: SUPCPDRO → ED 03:23 → EDIPHOLD 10:56 → 3N 17:20
PROVIDERS: ADMIT Internal Medicine; ATTEND Internal Medicine